=== PATIENT | male | born 1990 | race Two or more races ===

== ENCOUNTER 2024-10-09 17:02 | Emergency (ER) | payer OTHER ==
[~2024-10-09] VITALS: Ht 182.9 cm; Wt 90.7 kg
[2024-10-09 17:26] VITALS: BP 105/47; TEMP 97.9; O2SAT 98
[2024-10-09] MEDS ORDERED: SULF1TAB48 PO (17:41)
== END 2024-10-09 18:12 | disposition home or self-care (01) ==
LOC: ER 17:18
DX: L03.312 Cellulitis of back [any part except buttock and flank] (principal); Z60.2 Problems related to living alone